=== PATIENT | female | born 1945 | race Caucasian/White ===

== ENCOUNTER 2024-06-05 00:27 | Day surgery (SDC) | payer MEDICARE, BC, OTHER, SELFPAY ==
[2024-05-27 14:27] VITALS: BMI 25.6
--- OUTSIDE RECORDS SUMMARY | 2024-06-05 00:30 | XMS_ITS | Clinical Summary ---
Author Organization [facility] Address [address] [place] [address] Care Team Providers Care Clinical Rehabilitation Liaison Name Role Phone Mary Carmen Haines PA-C Unavailable [phone] Mary Carmen Haines PA-C Primary Care Provider [phone] Allergies No known active allergies Medications No known medications Encounters Date Type Department Care Team Description 05/13/2024 12:05 PM CDT - 05/13/2024 11:59 PM CDT Hospital Encounter [facility] Ultrasound [address] [place] [address] Mary Carmen Haines PA-C Discharge Disposition: Home or Self Care (Routine Discharge) 05/13/2024 Travel from Last 3 Months Social History Tobacco Use Types Packs/Day Years Used Date Smoking Tobacco: Every Day Cigarettes Smokeless Tobacco: Never Comments No Sex and Gender Information Value Date Recorded Sex Assigned at Not on file Legal Sex Female 5:01 PM CDT Gender Identity Not on file Sexual Orientation Not on file Last Filed Vital Signs Vital Sign Reading Time Taken Comments Blood Pressure 130/66 02/02/2024 4:47 PM BROADCAST METEOROLOGIST Pulse 80 02/02/2024 4:47 PM BROADCAST METEOROLOGIST Temperature 37.1 C (98.7 F) 02/02/2024 4:47 PM BROADCAST METEOROLOGIST Respiratory Rate 18 02/02/2024 4:47 PM BROADCAST METEOROLOGIST Oxygen Saturation 96% 02/02/2024 4:47 PM BROADCAST METEOROLOGIST Inhaled Oxygen Concentration - - Weight 65.6 kg (144 lb 10 oz) 02/02/2024 3:35 PM BROADCAST METEOROLOGIST Height 157.5 cm (5' 2 ) 02/02/2024 3:35 PM BROADCAST METEOROLOGIST Body Mass Index 26.45 02/02/2024 3:35 PM BROADCAST METEOROLOGIST Plan of Treatment Health Maintenance Due Date Last Done Comments Pneumococcal Vaccine: 50+ Years (1 of 2 - PCV) 05/06/1951 Hepatitis C 05/06/1965 Annual Medicare Wellness Visit 05/06/2012 Dexa Scan (General) 05/06/2012 RSV Immunization or 60+ Years (1 - 1-dose 75+ series) 05/06/2022 COVID-19 Vaccine (2 - 2023-2 5 season) 2023 04/26/2020 DTaP, Tdap and Td Vaccines ( 2 - Td or Tdap) 03/25/2029 03/25/2019 Zoster Vaccines Completed 08/09/2019, 03/25/2019 Meningococcal B Vaccine Aged Out No l onger eligible based on patient's age to complete this topic Meningococcal Vaccine Aged Out No nancy caitlin eligible based on patient's age to complete this topic RSV Immunizations Under 20 Months Aged Out No longer eligible b ased on patient's age to complete this topic Procedures Procedure Name Priority Date/Time Associated Diagnosis Comments [facility] LU[facility] ALBERTO Routine 05/13/2024 12:50 PM CDT Peripheral vascular disease, unspecified from Last 3 Months Results * [facility] LUIS ALBERTO (05/13/2024 12:50 PM CDT) Anatomical Region Laterality Modality Extremity Ultrasound 05/13/2024 9:08 PM CDT Impressions 05/13/2024 9:10 PM CDT IMPRESSION: 1. Normal ankle-brachial indices bilaterally. Referred By: MARY CARMEN HAINES Interpreted By: Hever Dupree MD, 05/13/2024 9:08 PM Narrative 05/13/2024 9:10 PM CDT [facility] [address] [facility] [place] [address] EXAMINATION: Ultrasound Ankle Brachial Indices EXAM DATE/TIME: 05/13/2024 12:18 PM REASON FOR EXAM: PVD COMPARISON: None TECHNIQUE: Transcutaneous ultrasound of the bilateral lower extremities performed for waveform plethysmography along with segmental bilateral blood pressures for calculation of ABIs. FINDINGS: Segmental pressures millimeters of mercury: Right Brachial: 146 Right Dorsalis pedis: 140 with a vascular index of 0.99 Right Posterior tibial: 161 with a vascular index of 1.08 Right SUSANA: 1.08 Left brachial:149 Left Dorsalis pedis: 150 with a vascular index of 1.01 Left Posterior tibial: 158 with a vascular index of 1.06 Left SUSANA: 1.06 Waveforms: Multiphasic waveforms are seen bilaterally and universally. Procedure Note Hever Dupree MD - 05/13/2024 [facility] [address] [facility] [place] [address] EXAMINATION: Ultrasound Ankle Brachial Indices EXAM DATE/TIME: 05/13/2024 12:18 PM REASON FOR EXAM: PVD COMPARISON: None TECHNIQUE: Transcutaneous ultrasound of the bilateral lower extremitiesperformed for waveform plethysmography along with segmental bilateralblood pressures for calculation of ABIs. FINDINGS: Segmental pressures millimeters of mercury: Right Brachial: 146 Right Dorsalis pedis: 140 with a vascular index of 0.99 Right Posterior tibial: 161 with a vascular index of 1.08 Right SUSANA: 1.08 Left brachial:149 Left Dorsalis pedis: 150 with a vascular index of 1.01 Left Posterior tibial: 158 with a vascular index of 1.06 Left SUSANA: 1.06 Waveforms: Multiphasic waveforms are seen bilaterally and universally. IMPRESSION: 1. Normal ankle-brachial indices bilaterally. Referred By: MARY CARMEN HAINES Interpreted By: Hever Dupree MD, 05/13/2024 9:08 PM us Mary Carmen Haines PA-C VASC Final Resu lt from Last 3 Months Insurance MEDICARE HUMAN Care Teams Clinical Rehabilitation Liaison Relationship Specialty Start Date End Date Mayr Carmen Haines PA-C [address] [place] [address] [address] [place] [address] PCP - General PHYSICIAN BARREL REPAIRER 02/02/24 Mary Carmen Haines PA-C [address] [place] [address] [address] [place] [address] Physician Trucksmith PHYSICIAN BARREL REPAIRER 02/02/24
[2024-06-05 06:25] VITALS: BP 125/55; PULSE 86; RESP 18; TEMP 36.1; O2SAT 100; BMI 26.4
[2024-06-05] MEDS: LACTATED RINGERS 1,000 ML 150 ML IV CONT (06:34)
--- NOTE | 2024-06-05 07:07 | P.PNAN_ITS ---
Anes - Initial Pre Proc Eval Procedure: Operation Date: 06/05/24 07:30 Proposed Procedures p Screening Colonoscopy - Joselo Razo MD Date/Time: 06/05/24 07:07 Surgeon: Joselo Razo MD Pre Op Diagnosis: Encounter for screening for malignant neoplasm of Patient Data Age: 79 Gender: F Height: 1.57 m Weight: 65.6 kg Last Vital Signs Temp 36.1 C L 06/05/24 06:25 Pulse 86 06/05/24 06:25 Resp 18 06/05/24 06:25 BP 125/55 L 06/05/24 06:25 Pulse Ox 100 06/05/24 06:25 O2 Del Method Room Air 06/05/24 06:25 Allergies Allergy/AdvReac Type Severity Reaction Status Date / Time macrobid AdvReac Mild Hives Uncoded 06/05/24 06:23 Home Medications ?Medication ?Instructions ?Recorded ?Confirmed ?Type hydrocortisone 2.5 % topical cream 1 applic topical BID PRN skin 07/25/23 05/27/24 Rx irritation #30 grams albuterol sulfate 90 mcg/actuation 1 puff inhalation Q4H PRN 03/20/24 05/27/24 Rx aerosol inhaler shortness of breath or wheezing #8.5 grams budesonide-formoterol HFA 80 2 puff inhalation Q12H #10.2 grams 03/20/24 06/05/24 Rx mcg-4.5 mcg/actuation aerosol inhaler (Symbicort) lorazepam 0.5 mg tablet 0.5 mg PO BID anxiety 05/27/24 06/05/24 History Patient hx anesthesia problems: none Family hx anesthesia problems: none Results Review: All pre-operative results and documents have been reviewed as part of the pre- operative evaluation. [facility] Past Medical History Medical History Claudication Essential tremor Head, sisters with tremor as well Nail abnormalities Psoriasis Pet allergy Thyroid disorder screen COPD (chronic obstructive pulmonary disease) Anxiety Surgical History Surgical History History of eye surgery 2018 restore lens H/O rotator cuff surgery 2016 Family History Family History Sibling Diabetes mellitus Other Family history of malignant neoplasm Hypertension Social History Social History Smoking packs per day: 1 Smoking cigarettes per day: 20.0 Years smoked: 60 Smoking pack-years: 60.00 Smoking status: Former smoker Tobacco type: cigarettes Second hand tobacco smoke exposure: Yes Alcohol intake: never Substance use: never Substance use type: does not use Lack of Transportation: No Lack of Food: Never True Current Housing: I Have Housing Concerned About Future Housing: No Difficulty Paying Gas/Electric Bills: No Difficulty Paying for Meds: No Currently Unemployed: No Education: High School Diploma/GED Difficulty w/ Childcare or Family Care: No Living arrangements: alone Occupation/Education: retired Gender identity (if verbalized by the patient): Female Sexual Orientation (if Verbalized by the Patient): Straight or Heterosexual Spiritual care concerns: No Agree to blood products: No Anes - Eval Final PreProcedure Day of Procedure 06/05/24 07:07 Patient weight: overweight Heart: regular rate and rhythm Lungs: clear to auscultation Airway: Mallampati scale class II Last oral intake: >/= 8 hours ASA classification: III Emergent: no Anesthetic plan: proceed Anesthesia type and monitoring: general GIVS and standard monitoring Results Review: All pre-operative results and documents have been reviewed as part of the pre- operative evaluation. Informed Consent: The patient's anesthetic plan and its attendant risks and benefits were discussed with the patient/family/POA. Questions were solicited and answers provided to the satisfaction of the patient/family/POA.
--- NOTE | 2024-06-05 07:21 | PM.HPGS ---
History of Present Illness History of Present Illness Consent: Risks, benefits, and alternatives have been discussed and questions answered. Patient agrees to proceed with procedure. Chief complaint: Encounter for screening for malignant neoplasm of Narrative: Freddy Gan is a 79 year old female here for first screening colonoscopy Review of Systems Review of Systems: All systems reviewed & are unremarkable except as noted in HPI and below PMFSH Past Medical History Medical History (Updated 06/05/24 @ 07:21 by Joselo Razo MD) Colon cancer screening Claudication Essential tremor Head, sisters with tremor as well Nail abnormalities Psoriasis Pet allergy Thyroid disorder screen COPD (chronic obstructive pulmonary disease) Anxiety Surgical History Surgical History History of eye surgery 2018 restore lens H/O rotator cuff surgery 2016 Family History Family History Sibling Diabetes mellitus Other Family history of malignant neoplasm Hypertension Social History Social History Smoking packs per day: 1 Smoking cigarettes per day: 20.0 Years smoked: 60 Smoking pack-years: 60.00 Smoking status: Former smoker Tobacco type: cigarettes Second hand tobacco smoke exposure: Yes Alcohol intake: never Substance use: never Substance use type: does not use Lack of Transportation: No Lack of Food: Never True Current Housing: I Have Housing Concerned About Future Housing: No Difficulty Paying Gas/Electric Bills: No Difficulty Paying for Meds: No Currently Unemployed: No Education: High School Diploma/GED Difficulty w/ Childcare or Family Care: No Living arrangements: alone Occupation/Education: retired Gender identity (if verbalized by the patient): Female Sexual Orientation (if Verbalized by the Patient): Straight or Heterosexual Spiritual care concerns: No Agree to blood products: No Meds Home Medications and Allergies Home Medications ?Medication ?Instructions ?Recorded ?Confirmed ?Type hydrocortisone 2.5 % topical cream 1 applic topical BID PRN skin 07/25/23 05/27/24 Rx irritation #30 grams albuterol sulfate 90 mcg/actuation 1 puff inhalation Q4H PRN 03/20/24 05/27/24 Rx aerosol inhaler shortness of breath or wheezing #8.5 grams budesonide-formoterol HFA 80 2 puff inhalation Q12H #10.2 grams 03/20/24 06/05/24 Rx mcg-4.5 mcg/actuation aerosol inhaler (Symbicort) lorazepam 0.5 mg tablet 0.5 mg PO BID anxiety 05/27/24 06/05/24 History Allergies Allergy/AdvReac Type Severity Reaction Status Date / Time macrobid AdvReac Mild Hives Uncoded 06/05/24 06:23 Vital Signs Vital Signs - 24 hr 06/05/24 06:25 Temperature 97 F L Pulse Rate 86 Respiratory Rate 18 Blood Pressure 125/55 L Pulse Oximetry 100 Oxygen Delivery Room Air Exam Const: General: comfortable and no acute distress HENMT: Face/Nose/Sinus: Normal nares present Eyes: General: appearance normal, both eyes and all related structures Neck: Neck: no JVD Resp: Auscultation: clear to auscultation bilaterally Cardio: Rate: regular rate Rhythm: regular rhythm GI: Inspection: non-distended GI Palp: Yes Soft to palpation Skin: General skin exam: normal color Neuro: Speech: normal speech Extrem: General: normal to inspection Psych: Mental Status: mental status grossly normal Assessment and Plan Assessment and plan (1) Colon cancer screening: Code(s): Z12.11 - Encounter for screening for malignant neoplasm of colon Status: Acute Assessment and Plan: colonoscopy
[2024-06-05 07:38] VITALS: BP 93/46; PULSE 88; RESP 19; O2SAT 94
[2024-06-05 07:48] VITALS: BP 112/73; PULSE 83; RESP 19; O2SAT 98
[2024-06-05 07:58] VITALS: BP 125/70; PULSE 79; RESP 26; O2SAT 98
== END 2024-06-05 08:10 | disposition home or self-care (01) ==
PROVIDERS: PCP Physician Assistant Medical; Referring Provider Physician Assistant Medical; Visit Provider Internal Medicine Gastroenterology
PROC: 0DJD8ZZ Inspection of Lower Intestinal Tract, Via Natural or Artificial Opening Endoscopic (ICD-10-PCS; CPT 45378; principal; 2024-06-05 07:30)
DX: Z12.11 Encounter for screening for malignant neoplasm of colon (principal); K57.30 Diverticulosis of large intestine without perforation or abscess without bleeding; K64.8 Other hemorrhoids; Z87.891 Personal history of nicotine dependence
CPT/HCPCS: G0121; J2003; J2704; J7120